=== PATIENT | male | born 1940 | race American Indian/Alaskan Native ===

== ENCOUNTER 2017-07-30 11:32 | Emergency (ER) | payer BC, OTHER ==
[2017-07-30 11:40] VITALS: BMI 21.6
--- NOTE | 2017-07-30 11:54 | PDOC ---
History of Present Illness - General Chief Complaint: Injury Stated Complaint: INJURY Time Seen by Provider: 07/30/17 11:46 History Source: Patient Exam Limitations: No Limitations - History of Present Illness Initial Comments: This is a 77 YOM with h/o NIDDM, HTN, and HLD who p/w nonhealing wound to his right diamond for the past 20 days after accidentally hitting this diamond with a metal bar. Over the past 2-3 days he has had worsening pain and surrounding redness to the wound, despite treatment with a course of amoxicillin which he has been taking adherently. He is being treated by Dr. Ledbetter for this. He denies any fever, chills, nausea, vomiting, diarrhea, constipation, streaking redness, swollen lymph nodes, or new numbness, tingling, weakness, or other symptoms. He has never had a skin infection or MRSA before per his own report. He notes well-controlled CBG at home with adherent use of metformin and Januvia. Past History - Past Medical History Allergies/Adverse Reactions: Allergies Allergy/AdvReac Type Severity Reaction Status Date / Time No Known Drug Allergies Allergy Verified 07/30/17 11:40 Home Medications: Ambulatory Orders Aspirin [ASA -] 81 mg PO DAILY 06/11/14 Fenofibrate [Fenofibrate -] 134 mg PO DAILY 06/11/14 Glyburide/Metformin HCl [Glyburide-Metformin 5-500 mg] 1 each PO BID 06/11/14 Losartan Potassium 25 mg PO DAILY 06/11/14 Rosuvastatin Calcium [Crestor] 10 mg PO DAILY 06/11/14 Bimatoprost [Lumigan] 1 drop OU DAILY 08/07/14 Brimonidine Tartrate/Timolol [Combigan 0.2%-0.5% Eye Drops] 5 ml OS BID Cholecalciferol (Vitamin D3) [Vitamin D3] 1,000 unit PO DAILY 08/07/14 Multivitamins [Multivit (RH Formulary)] 1 tab PO DAILY 08/07/14 Vitamin E 400 unit PO DAILY 08/07/14 Cephalexin [Keflex] 500 mg PO QID #40 capsule 07/30/17 Sulfamethoxazole/Trimethoprim [Bactrim Ds Tablet] 2 each PO BID #40 tablet 07/30 Anemia: No Asthma: No Cancer: No Cardiac Disorders: No CVA: No COPD: No CHF: No Dementia: No Diabetes: Yes GI Disorders: No Disorders: No HTN: Yes Hypercholesterolemia: Yes Liver Disease: No Seizures: No Thyroid Disease: No - Surgical History Appendectomy: Yes (40 YRS AGO) - Suicide/Smoking/Psychosocial Hx Smoking History: Former smoker Have you smoked in the past 12 months: No Number of Cigarettes Smoked Daily: 5 If you are a former smoker, when did you quit?: 2017 Information on smoking cessation initiated: No 'Breaking Loose' booklet given: 06/11/14 Hx Alcohol Use: No Drug/Substance Use Hx: No Substance Use Type: None Hx Substance Use Treatment: No Review of Systems - Review of Systems Able to Perform ROS?: Yes Constitutional: No: Chills, Fever, Unexplained wgt Loss HEENTM: No: Nose Congestion, Throat Pain Respiratory: No: Cough, Shortness of Breath Cardiac (ROS): No: Chest Pain, Palpitations ABD/GI: No: Constipated, Diarrhea, Nausea, Vomiting : No: Burning, Dysuria Musculoskeletal: No: Back Pain, Neck Pain Integumentary: Yes: Erythema, Lesions. No: Bruising Neurological: No: Headache, Numbness, Tingling, Weakness, Dizziness Endocrine: No: Unexplained Weight Gain, Unexplained Weight Loss *Physical Exam - Vital Signs Last Vital Signs Temp Pulse Resp BP Pulse Ox 98 F 93 H 18 152/64 99 07/30/17 11:36 07/30/17 11:36 07/30/17 11:36 07/30/17 11:36 07/30/17 11:36 - Physical Exam General Appearance: Yes: Nourished, Appropriately Dressed, Thin, Other (well appearing adult male who is comfortable appearing, answers questions appropriately). No: Apparent Distress HEENT: positive: EOMI, ANGELO, Normal Voice, Hearing Grossly Normal. negative: Scleral Icterus (R), Scleral Icterus (L), Nasal Congestion Neck: positive: Trachea midline, Supple. negative: Tender, Rigid Respiratory/Chest: positive: Lungs Clear, Normal Breath Sounds. negative: Respiratory Distress, Crackles, Rhonchi, Stridor, Wheezing Cardiovascular: positive: Regular Rhythm, Regular Rate. negative: Murmur Gastrointestinal/Abdominal: positive: Normal Bowel Sounds, Soft. negative: Tender, Organomegaly, Pulsatile Mass, Guarding Musculoskeletal: positive: Normal Inspection. negative: Decreased Range of Motion, Vertebral Tenderness Extremity: positive: Normal Capillary Refill, Normal Inspection, Normal Range of Motion. negative: Tender, Cyanosis Integumentary: positive: Normal Color, Dry, Warm, Other (with central 1.5x1.5cm ulceration with granulation tissue and surrounding erythema and mild ttp, no purulent discharge or other fluid drainage). 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 Initial Vital Signs Temp Pulse Resp BP Pulse Ox 98 F 93 H 18 152/64 99 07/30/17 11:36 07/30/17 11:36 07/30/17 11:36 07/30/17 11:36 07/30/17 11:36 Exam: with central 1.5x1.5cm ulceration with granulation tissue and surrounding erythema and mild ttp, no purulent discharge or other fluid drainage DDX IBNLT: cellulitis, osteomyelitis, necrotizing soft tissue infection, sepsis , DVT, superficial venous thrombosis, CHF exacerbation, PVD, pulmonary HTN, etc W/U ordered: CBCD CMP EKG X-ray leg to r/o gas. TX ordered: IVF EKG: Leg XR: NADP Laboratory Tests 07/30/17 07/30/17 12:24 12:24 WBC 5.0 RBC 4.08 Hgb 13.4 Hct 38.7 MCV 94.7 MCH 32.9 MCHC 34.7 RDW 14.4 Plt Count 284 MPV 7.7 Absolute Neuts (auto) 2.4 Neutrophils % 47.6 D Lymphocytes % 37.5 Monocytes % 11.5 H Eosinophils % 2.6 Basophils % 0.8 Nucleated RBC % 0 Sodium 136 Potassium 4.5 Chloride 106 Carbon Dioxide 24 Anion Gap 6 L BUN 18 D Creatinine 1.3 Creat Clearance w eGFR 53.67 Random Glucose 140 H Calcium 9.7 Total Bilirubin 0.3 D AST 32 D ALT 56 D Alkaline Phosphatase 41 L Total Protein 8.3 H Albumin 4.3 Reassesement: exam unchanged, patient wants to go home. Vital Signs Temperature 97.9 F 07/30/17 14:36 Pulse Rate 81 07/30/17 14:36 Respiratory Rate 18 07/30/17 14:36 Blood Pressure 141/70 07/30/17 14:36 O2 Sat by Pulse Oximetry (%) 99 07/30/17 11:36 The Pt has gotten significant relief of symptoms with ED medications. Workup is not concerning for emergency-level pathology at this time. The Pt is appropriate for discharge with close outpatient follow up. E-Rx sent to patient's pharmacy for Bactrim and Keflex. Patient is advised to stop amoxicillin. They are comfortable with this plan and will follow up with their PCP in 1-3 days. Specific return precautions are discussed and they will come back to the ER if necessary. *DC/Admit/Observation/Transfer Diagnosis at time of Disposition: Cellulitis Qualifiers: Site of cellulitis: extremity Site of cellulitis of extremity: lower extremity Laterality: right Qualified Code(s): L03.115 - Cellulitis of right lower limb Skin ulcer Qualifiers: Non-pressure ulcer stage: limited to breakdown of skin Qualified Code(s): L98.491 - Non-pressure chronic ulcer of skin of other sites limited to breakdown of skin - Discharge Dispostion Disposition: HOME Condition at time of disposition: Stable Decision to Admit order: No - Prescriptions Prescriptions: Cephalexin [Keflex] 500 mg PO QID #40 capsule Sulfamethoxazole/Trimethoprim [Bactrim Ds Tablet] 2 each PO BID #40 tablet - Referrals - Patient Instructions Printed Discharge Instructions: DI for Cellulitis -- Adult Additional Instructions: You were seen in the ER for a leg infection. We did lab work and an x-ray, and we did not find any evidence of a life-threatening infection but you do need to switch antibiotics. After our assessment, we do not believe you are having a medical emergency at this time, and we believe you are safe to go home. We are sending electronic prescriptions for your new antibiotics to your pharmacy. Please pick them up and take the entire course. The dosing is a bit complicated , so do this: a) Bactrim DS take 2 pills at a time, twice a day. b) Keflex take one pill at a time, four times a day. Please STOP taking the amoxicillin. Please follow up with your regular PCP doctor in 1-3 days. Call their clinic as soon as possible, tell them you were seen in the ER, and tell them you need an appointment. If you have any new or worsening symptoms, please come back to the ER at any time (24 hours a day). If you are having severe or life threatening symptoms (especially fever, chills, worsening redness or streaking redness or pus drainage from the wound), or symptoms that make it unsafe to drive or have someone drive you, please call 911. - Post Discharge Activity
--- NOTE | 2017-07-30 12:03 | PDOC ---
Attending Attestation - HPI HPI: Patient is a 77 M, with PMHx of NIDDM (well-controlled), HTN, HLD, who presents with 20 days of left diamond ulceration. Patient states that about 3 weeks ago, he ran his diamond into a pipe and it became infected. He saw his PCP and was given amoxicillin. He has been taken the amoxicillin as prescribed but has not seen any improvement. He reports worsening pain and redness to the area. He states that his tetanus is up-to-date. He denies fever, chills, or any additional symptoms PCP: Anatoly Luke Hx: former smoker ( quit in 2017) 07/30/17 12:53 - Physicial Exam PE: Constitutional: Awake, alert, oriented. No acute distress. Head: Normocephalic. Atraumatic Eyes: PERRL. EOMI. Conjunctivae are not pale. ENT: Mucous membranes are moist and intact. Posterior pharynx without exudates or erythema. Uvula midline. Neck: Supple. Full ROM. No lymphadenopathy. Cardiovascular: Regular rate. Regular rhythm. S1, S2 regular. Distal pulses are 2+ and symmetric. Pulmonary/Chest: No evidence of respiratory distress. Clear to auscultation bilaterally No wheezing, rales or rhonchi. Abdominal: Soft and non-distended. There is no tenderness. No rebound, guarding or rigidity. No organomegaly. No palpable masses. Good bowel sounds. Back: No CVA tenderness. Musculoskeletal: No edema. No cyanosis. No clubbing. Full range of motion in all extremities. Nocalf tenderness. Radial/pedal pulses are intact and 2+ bilaterally Skin: 1x1 right diamond ulceration. 2.5 x 2.5 circular area of erythema with some warmth. No active drainage. No petechiae. No purpura. Neurological: Alert and oriented to person, place, and time. Cranial nerves II -XII are grossly intact. Normal speech. Strength is grossly symmetric. No sensory deficits. Psychiatric: Good eye contact. Normal interaction, affect and behavior. <Tamiko Duran - Last Filed: 07/30/17 12:53> - Resident Resident Name: Amanda Saldaña - ED Attending Attestation I have performed the following: I have examined & evaluated the patient, The case was reviewed & discussed with the resident, I agree w/resident's findings & plan, Exceptions are as noted - Medical Decision Making 07/30/17 12:03 I, Dr. Selina Hancock, DO, attest that this document has been prepared under my direction and personally reviewed by me in its entirety. I further attest, that it accurately reflects all work, treatment, procedures and medical decision -making performed by me. 07/30/17 14:11 a/p: 77yo male with injury to tib/fib -small ulceration -mild surrounding erythema -no systemic symptoms -will check labs, xray will monitor and reassess will most likely need to change augemtin to keflex/bactrim most likely d/c to home 07/30/17 14:14 xray without acute findings labs reviewed and stable will send out with new abx stable for d/c to home <Selina Hancock - Last Filed: 07/30/17 14:14>
[2017-07-30 12:45] LABS: BASO % 0.8 % (0-2.0); EOS % 2.6 % (0-4.5); HEMATOCRIT 38.7 % (35.4-49); HEMOGLOBIN 13.4 GM/dL (11.7-16.9); LYMPH % 37.5 % (8-40); MCH 32.9 pg (25.7-33.7); MCHC 34.7 g/dl (32.0-35.9); MEAN CELL VOLUME 94.7 fl (80-96); MEAN PLT VOLUME 7.7 fl (7.5-11.1); MONO % 11.5 % (3.8-10.2); NEUT % 47.6 % (42.8-82.8); PLATELET COUNT 284 K/MM3 (134-434); RBC 4.08 M/mm3 (4.00-5.60); RDW 14.4 % (11.9-15.9)
[2017-07-30 13:08] LABS: ALBUMIN 4.3 g/dl (3.4-5.0); ANION GAP 6 (8-16); BLOOD UREA NITROGEN 18 mg/dL (7-18); CALCIUM 9.7 mg/dL (8.5-10.1); CHLORIDE 106 mmol/L (98-107); CO2 24 mmol/L (21-32); CREATININE 1.3 mg/dL (0.7-1.3); GLUCOSE,RANDOM 140 mg/dL (74-106); POTASSIUM 4.5 mmol/L (3.5-5.1); SGOT/AST 32 U/L (15-37); SGPT/ALT 56 U/L (12-78); SODIUM 136 mmol/L (136-145)
[2017-07-30 13:09] LABS: BILIRUBIN,TOTAL 0.3 mg/dL (0.2-1.0)
[2017-07-30 13:11] LABS: ALK PHOS 41 U/L (45-117); TOT PROT 8.3 g/dl (6.4-8.2)
[2017-07-30 14:37] VITALS: BP 141/70; PULSE 81; TEMP 97.9
== END 2017-07-30 14:48 | disposition home or self-care (01) ==
LOC: JER 11:32
DX: L03.115 Cellulitis of right lower limb (principal); L98.491 Non-pressure chronic ulcer of skin of other sites limited to breakdown of skin; I10 Essential (primary) hypertension; E78.5 Hyperlipidemia, unspecified; E11.9 Type 2 diabetes mellitus without complications; Z87.891 Personal history of nicotine dependence
CPT/HCPCS: 36415; 73590-TC-RT-FY; 80053; 85025; 99282-25

== ENCOUNTER 2019-04-09 21:38 | Observation (INO) | payer BC, OTHER ==
[2019-04-09 21:53] VITALS: BMI 25.8
--- NOTE | 2019-04-09 21:57 | PDOC ---
Rapid Medical Evaluation Chief Complaint: Lightheaded Time Seen by Provider: 04/09/19 21:54 Medical Evaluation: Allergies Allergy/AdvReac Type Severity Reaction Status Date / Time No Known Drug Allergies Allergy Verified 04/09/19 21:50 Vital Signs Temp Pulse Resp BP Pulse Ox 97.6 F 97 H 18 168/71 98 04/09/19 21:50 04/09/19 21:50 04/09/19 21:50 04/09/19 21:50 04/09/19 21:50 04/09/19 21:55 I performed a brief in-person evaluation of this patient. 78-year-old male history of NIDDM, HTN, HLD, prior episode of vertigo presenting with dizziness, weakness, perioral numbness today. Daughter reports BP 190s systolic, BS 300s today. Pertinent physical exam findingS: Alert, oriented. NIHSS=0. Dizzy when standing. I have ordered the following: EKG HCT CXR Cardiac labs Patient to proceed to ED for further evaluation. Discharge Disposition - Diagnosis Dizziness - Referrals - Patient Instructions - Post Discharge Activity
--- NOTE | 2019-04-09 22:48 | PDOC ---
Attending Attestation - Resident Resident Name: Bakari Stewart - ED Attending Attestation I have performed the following: I have examined & evaluated the patient, The case was reviewed & discussed with the resident, I agree w/resident's findings & plan - HPI HPI: 04/10/19 02:01 see resident hpi - Physicial Exam PE: 04/10/19 02:01 see resident exam - Medical Decision Making 04/10/19 02:01 78-year-old male with several episodes of room spinning dizziness Labs suggest dehydration and diabetic hyperglycemia without DKA CT scan of the brain showed no acute abnormality Patient had some persistent dizzy episodes despite receiving meclizine Though symptoms are somewhat reproducible due to patient's age and poorly controlled diabetes will admit for further evaluation
--- NOTE | 2019-04-09 22:58 | PDOC ---
History of Present Illness - General Chief Complaint: Lightheaded Stated Complaint: DIZZINESS Time Seen by Provider: 04/09/19 21:54 History Source: Patient Exam Limitations: No Limitations - History of Present Illness Initial Comments: 04/10/19 00:22 78 yo with a hx of HTN, HLD, NIDDM, and hx of vertigo with last episode 4 years ago presents with sudden onset of dizziness at approximately at 8:30 pm while at rest. Per the patient, the room was spinning to the left that lasted for approximately 20 minutes with self termination. The patient states he is currently asymptomatic. Denies the following: fevers, chills, SOB, chest pain, nausea, vomiting, abdominal pain, headache, FND, dysuria, hematuria, diarrhea, and leg pain/swelling. Endorses generalized weakness. Past History - Past Medical History Allergies/Adverse Reactions: Allergies Allergy/AdvReac Type Severity Reaction Status Date / Time No Known Drug Allergies Allergy Verified 04/09/19 21:50 Home Medications: Ambulatory Orders Aspirin 81 mg PO DAILY 04/10/19 Cholecalciferol (Vitamin D3) [Vitamin D3 -] 1,000 unit PO DAILY 04/10/19 Famotidine [Pepcid -] 40 mg PO HS 04/10/19 Fluticasone Propionate [Flovent Diskus] 2 spray DAILY 04/10/19 Glyburide/Metformin HCl [Glyburide-Metformin 5-500 mg] 1 tab PO BID 04/10/19 Losartan Potassium 50 mg PO DAILY 04/10/19 Meclizine HCl [Antivert -] 50 mg PO Q8H PRN #30 tablet 04/10/19 Multivitamin [Multiple Vitamins] 1 each PO DAILY 04/10/19 Rosuvastatin [Crestor -] 10 mg PO DAILY 04/10/19 Sitagliptin Phosphate [Januvia] 100 mg PO DAILY 04/10/19 Tamsulosin HCl [Flomax -] 0.4 mg PO DAILY 04/10/19 Anemia: No Asthma: No Cancer: No Cardiac Disorders: No CVA: No COPD: No CHF: No Dementia: No Diabetes: Yes GI Disorders: No Disorders: No HTN: Yes Hypercholesterolemia: Yes Liver Disease: No Seizures: No Thyroid Disease: No - Surgical History Appendectomy: Yes (40 YRS AGO) - Psycho Social/Smoking Cessation Hx Smoking History: Never smoked Have you smoked in the past 12 months: No Number of Cigarettes Smoked Daily: 5 If you are a former smoker, when did you quit?: 2017 'Breaking Loose' booklet given: 06/11/14 Hx Alcohol Use: No Drug/Substance Use Hx: No Substance Use Type: None Hx Substance Use Treatment: No Review of Systems - Review of Systems Able to Perform ROS?: Yes Is the patient limited Mozambican proficient: No Constitutional: No: Chills, Diaphoresis, Fever, Weakness HEENTM: No: Eye Pain, Blurred Vision, Double Vision, Ear Pain, Nose Pain, Throat Pain, Mouth Pain Respiratory: No: Cough, Shortness of Breath, Hemoptysis Cardiac (ROS): No: Chest Pain, Lightheadedness, Palpitations, Syncope, Chest Tightness ABD/GI: No: Constipated, Diarrhea, Nausea, Poor Appetite, Poor Fluid Intake, Rectal Bleeding, Vomiting, Indigestion, Abdominal cramping, Tarry Stools : No: Burning, Dysuria, Hematuria Musculoskeletal: No: Back Pain, Joint Pain, Neck Pain Integumentary: No: Bruising, Erythema, Rash Neurological: Yes: Dizziness. No: Headache, Numbness, Tingling, Tremors Psychiatric: No: Change in Appetite Endocrine: No: Unexplained Weight Loss Hematologic/Lymphatic: No: Anemia *Physical Exam - Vital Signs Last Vital Signs Temp Pulse Resp BP Pulse Ox 97.6 F 97 H 18 168/71 98 04/09/19 21:50 04/09/19 21:50 04/09/19 21:50 04/09/19 21:50 04/09/19 21:50 - Physical Exam General Appearance: Yes: Nourished, Appropriately Dressed. No: Apparent Distress, Intoxicated, Obese HEENT: positive: EOMI, ANGELO, Normal Voice, Symmetrical, Pharynx Normal, Hearing Grossly Normal, Other (serrous effusion on the left TM). negative: Pale Conjunctivae, Scleral Icterus (R), Scleral Icterus (L), Muffled/Hoarse voice, Pharyngeal Erythema, Tonsillar Exudate, Tonsillar Erythema, Nasal Congestion, Rhinorrhea, Excessive drooling Neck: positive: Trachea midline, Supple. negative: Tender, Lymphadenopathy (R) , Lymphadenopathy (L), Tender lateral, Tender midline Respiratory/Chest: positive: Lungs Clear, Normal Breath Sounds. negative: Chest Tender, Respiratory Distress, Accessory Muscle Use Cardiovascular: positive: Regular Rhythm, Regular Rate, S1, S2. negative: Systolic Murmur Gastrointestinal/Abdominal: positive: Normal Bowel Sounds, Flat, Soft. negative : Tender, Protuberent, Distended, Guarding, Rebound Lymphatic: negative: Adenopathy Musculoskeletal: positive: Normal Inspection, CVA Tenderness. negative: Vertebral Tenderness Extremity: positive: Normal Capillary Refill, Normal Inspection, Normal Range of Motion. 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 Initial vitals: Initial Vital Signs Temp Pulse Resp BP Pulse Ox 97.6 F 97 H 18 168/71 98 04/09/19 21:50 04/09/19 21:50 04/09/19 21:50 04/09/19 21:50 04/09/19 21:50 Work up: ddx: peripheral vs central vertigo. Patient likely has peripheral given sudden onset, reproducible symptoms, worsening with movement, and positive desmond hallpike examination. Laboratory Tests 04/09/19 04/09/19 04/09/19 22:37 22:40 22:46 WBC RBC Hgb Hct MCV MCH MCHC RDW Plt Count MPV Absolute Neuts (auto) Neutrophils % Lymphocytes % Monocytes % Eosinophils % Basophils % Nucleated RBC % PT with INR INR VBG pH 7.36 POC VBG pCO2 41.1 POC VBG pO2 < 49 H VBG HCO3 22.8 L VBG O2 Sat (Lauryn) 64.9 L VBG Base Excess -2.0 Sodium Potassium Chloride Carbon Dioxide Anion Gap BUN Creatinine Est GFR (CKD-EPI)AfAm Est GFR (CKD-EPI)NonAf POC Glucometer 279 Random Glucose Calcium Total Bilirubin AST ALT Alkaline Phosphatase Creatine Kinase 186 Creatine Kinase Index 1.6 CK-MB (CK-2) 3.1 Troponin I < 0.02 Total Protein Albumin Beta-Hydroxybutyrate 04/09/19 04/09/19 04/09/19 22:46 22:46 22:46 WBC 5.4 RBC 3.96 L Hgb 12.8 Hct 36.9 MCV 93.3 MCH 32.3 MCHC 34.6 RDW 14.1 Plt Count 350 D MPV 8.2 Absolute Neuts (auto) 2.3 Neutrophils % 42.8 Lymphocytes % 35.7 Monocytes % 13.0 H Eosinophils % 7.7 H D Basophils % 0.8 Nucleated RBC % 0 PT with INR 12.00 INR 1.02 VBG pH POC VBG pCO2 POC VBG pO2 VBG HCO3 VBG O2 Sat (Lauryn) VBG Base Excess Sodium 134 L Potassium 4.6 Chloride 105 Carbon Dioxide 24 Anion Gap 5 L BUN 23.2 H Creatinine 1.4 H Est GFR (CKD-EPI)AfAm 55.77 Est GFR (CKD-EPI)NonAf 48.12 POC Glucometer Random Glucose 304 H Calcium 9.7 Total Bilirubin 0.3 AST 30 ALT 52 Alkaline Phosphatase 60 Creatine Kinase Creatine Kinase Index CK-MB (CK-2) Troponin I Total Protein 7.9 Albumin 4.1 Beta-Hydroxybutyrate 04/09/19 22:46 WBC RBC Hgb Hct MCV MCH MCHC RDW Plt Count MPV Absolute Neuts (auto) Neutrophils % Lymphocytes % Monocytes % Eosinophils % Basophils % Nucleated RBC % PT with INR INR VBG pH POC VBG pCO2 POC VBG pO2 VBG HCO3 VBG O2 Sat (Lauryn) VBG Base Excess Sodium Potassium Chloride Carbon Dioxide Anion Gap BUN Creatinine Est GFR (CKD-EPI)AfAm Est GFR (CKD-EPI)NonAf POC Glucometer Random Glucose Calcium Total Bilirubin AST ALT Alkaline Phosphatase Creatine Kinase Creatine Kinase Index CK-MB (CK-2) Troponin I Total Protein Albumin Beta-Hydroxybutyrate 1.6 Glucose elevated without elevated AG without acidosis. Denies alcoholic consumption. Slightly elevated creatinine that is up from baseline of 0.1. The patient had a pending head CT and was signed out to the night team. Discharge - Discharge Information Problems reviewed: Yes Clinical Impression/Diagnosis: Dizziness - Follow up/Referral - Patient Discharge Instructions - Post Discharge Activity
[2019-04-09 23:00] LABS: BASO % 0.8 % (0-2.0); EOS % 7.7 % (0-4.5); HEMATOCRIT 36.9 % (35.4-49); HEMOGLOBIN 12.8 GM/dL (11.7-16.9); LYMPH % 35.7 % (8-40); MCH 32.3 pg (25.7-33.7); MCHC 34.6 g/dl (32.0-35.9); MEAN CELL VOLUME 93.3 fl (80-96); MEAN PLT VOLUME 8.2 fl (7.5-11.1); NEUT % 42.8 % (42.8-82.8); PLATELET COUNT 350 K/MM3 (134-434); RBC 3.96 M/mm3 (4.00-5.60); RDW 14.1 % (11.9-15.9); WHITE BLOOD COUNT 5.4 K/mm3 (4.0-10.0)
[2019-04-09 23:01] LABS: VENOUS PC02 41.1 mmHg (38-52); VENOUS PH 7.36 (7.31-7.41)
[2019-04-09 23:05] LABS: VENOUS PO2 < 49 mmHg (28-48)
[2019-04-09 23:12] LABS: INR 1.02 (0.83-1.09)
[2019-04-09 23:24] LABS: ALBUMIN 4.1 g/dl (3.4-5.0); BILIRUBIN,TOTAL 0.3 mg/dL (0.2-1); BLOOD UREA NITROGEN 23.2 mg/dL (7-18); CALCIUM 9.7 mg/dL (8.5-10.1); CREATININE 1.4 mg/dL (0.55-1.3); POTASSIUM 4.6 mmol/L (3.5-5.1); TOT PROT 7.9 g/dl (6.4-8.2)
[2019-04-09] MEDS ORDERED: MECLIZINE HCL 25 MG TABLET (FP) PO ONE (23:31)
[2019-04-09] MEDS ORDERED: MECLIZINE HCL 25 MG TABLET (FP) ONE (23:37)
--- NOTE | 2019-04-10 00:11 | PDOC ---
*Physical Exam - Vital Signs Last Vital Signs Temp Pulse Resp BP Pulse Ox 97.6 F 97 H 18 168/71 98 04/09/19 21:50 04/09/19 21:50 04/09/19 21:50 04/09/19 21:50 04/09/19 21:50 ED Treatment Course - LABORATORY CBC & Chemistry Diagram: 04/10/19 08:25 04/10/19 08:25 - ADDITIONAL ORDERS Additional order review: Laboratory Results 04/09/19 04/09/19 04/09/19 22:46 22:46 22:46 PT with INR 12.00 INR 1.02 VBG pH POC VBG pCO2 POC VBG pO2 VBG HCO3 VBG O2 Sat (Lauryn) VBG Base Excess Sodium 134 L Potassium 4.6 Chloride 105 Carbon Dioxide 24 Anion Gap 5 L BUN 23.2 H Creatinine 1.4 H Est GFR (CKD-EPI)AfAm 55.77 Est GFR (CKD-EPI)NonAf 48.12 POC Glucometer Random Glucose 304 H Calcium 9.7 Total Bilirubin 0.3 AST 30 ALT 52 Alkaline Phosphatase 60 Creatine Kinase 186 Creatine Kinase Index 1.6 CK-MB (CK-2) 3.1 Troponin I < 0.02 Total Protein 7.9 Albumin 4.1 04/09/19 04/09/19 22:40 22:37 PT with INR INR VBG pH 7.36 POC VBG pCO2 41.1 POC VBG pO2 < 49 H VBG HCO3 22.8 L VBG O2 Sat (Lauryn) 64.9 L VBG Base Excess -2.0 Sodium Potassium Chloride Carbon Dioxide Anion Gap BUN Creatinine Est GFR (CKD-EPI)AfAm Est GFR (CKD-EPI)NonAf POC Glucometer 279 Random Glucose Calcium Total Bilirubin AST ALT Alkaline Phosphatase Creatine Kinase Creatine Kinase Index CK-MB (CK-2) Troponin I Total Protein Albumin 04/09/19 04/09/19 22:46 22:37 RBC 3.96 L MCV 93.3 MCHC 34.6 RDW 14.1 MPV 8.2 Neutrophils % 42.8 Lymphocytes % 35.7 Monocytes % 13.0 H Eosinophils % 7.7 H D Basophils % 0.8 POC Glucometer 279 - Medications Given in the ED: ED Medications Discontinued Medications Generic Name Dose Route Start Last Admin Trade Name Freq PRN Reason Stop Dose Admin Meclizine HCl 25 mg 04/09/19 23:31 04/09/19 23:40 Antivert - PO 04/09/19 23:32 25 mg ONCE ONE Administration Medical Decision Making - Medical Decision Making 04/10/19 00:[address] Stewart + desmond valles multiple CVA risk factors f/u CT head Admit stroke-obs 04/10/19 01:40 CT HEAD IOC: EXAM: CT HEAD WITHOUT CONTRAST No acute hemorrhage, mass or acute territorial infarct. Age-related involutional changes and chronic small vessel ischemic changes. Minimal mucoperiosteal thickening paranasal sinuses. Visualized mastoid air cells clear. Irma Salinas M.D. 04/10/19 02:02 endorsed admitted Discharge - Discharge Information Problems reviewed: Yes Clinical Impression/Diagnosis: Dizziness - Follow up/Referral - Patient Discharge Instructions - Post Discharge Activity
[2019-04-10] MEDS ORDERED: SODIUM CHLORIDE 0.9% 500 ML INFUS.BAG IV ONE (01:38)
--- NOTE | 2019-04-10 02:00 | PN ---
Teaching Attending Note Name of Resident: Coty Euceda ATTENDING PHYSICIAN STATEMENT I saw and evaluated the patient. I reviewed the resident's note and discussed the case with the resident. I agree with the resident's findings and plan as documented. SUBJECTIVE: 78 yo M W HTN, HLD, NIDDM, and hx of vertigo with last episode 4 years ago presents with sudden onset of vertigo at approximately at 8:30 pm while at rest. . Denies the following: fevers, chills, SOB, chest pain, nausea, vomiting, abdominal pain, headache, FND, dysuria, hematuria, diarrhea, and leg pain/ swelling. Endorses generalized weakness. OBJECTIVE: ASSESSMENT AND PLAN: 78 yo M W HTN, HLD, NIDDM, and hx of vertigo with last episode 4 years ago presents with sudden onset of vertigo at approximately at 8:30 pm while at rest. . Denies the following: fevers, chills, SOB, chest pain, nausea, vomiting, abdominal pain, headache, FND, dysuria, hematuria, diarrhea, and leg pain/ swelling. Endorses generalized weakness. vertigo: most likely BPPV as it is triggered with movement Will get MRI brain as well as vertebral artery doppler. Will ask for neuro evaluation Will ask for neuro eval Will C/CW asa, statins if central etiology of vertigo is R/O will send the patient for vestibular rehab. NIDDM: wiill C/W home medicatio, send Hg A1C and lipid panel HTN; will keep SBP around 180 till the MRI results result negative fro acute ischemia.
[2019-04-10] MEDS ORDERED: SODIUM CHLORIDE 1,000 ML IV SCH (03:45)
--- NOTE | 2019-04-10 03:53 | HP ---
CHIEF COMPLAINT: vertigo PCP: Marietta Hare HISTORY OF PRESENT ILLNESS: 78 y.o. M PMH HTN, HLD, vertigo, DM type 2 presenting for vertigo. The patient has hx of vertigo but has not had an episode in a few years. Today around 8pm he was standing up when he noticed he became very lightheaded and the room started spinning so he had to sit back down. Says he saw a neurologist for these symptoms in the past. He has had no recent changes in medications. He notes that he walked on the treadmill for about 30 minutes around 3pm. In ED noted to have + desmond hallpike. Minimal resolution of symptoms with meclazine. On my exam, vertigo is positional, none present at rest. C/o vertigo w/ change in position including rapid head turn, sitting up from supine, standing from sitting; episodes last ~10 seconds. ROS: + positional vertigo denies headache/ tinnitus/ SOB/ CP/ nausea/ vomiting/ abd pain/ urinary or bowel changes/ myalgias/ parasthesias/ weight changes ER course was notable for: (1) meclizine 25mg (2) 1 L normal saline (3) tachy to 104 Recent Travel: denies PAST MEDICAL HISTORY: as per hpi PAST SURGICAL HISTORY: appendectomy Social History: Smoking: denies Alcohol:denies Drugs: denies Allergies No Known Drug Allergies Allergy (Verified 04/09/19 21:50) HOME MEDICATIONS: Home Medications Medication Instructions Recorded Aspirin 81 mg PO DAILY 04/10/19 Cholecalciferol (Vitamin D3) 1,000 unit PO DAILY 04/10/19 [Vitamin D3 -] Famotidine [Pepcid -] 40 mg PO DAILY 04/10/19 Fluticasone Propionate [Flovent 2 spray DAILY 04/10/19 Diskus] Glyburide/Metformin HCl 1 tab PO BID 04/10/19 [Glyburide-Metformin 5-500 mg] Losartan Potassium 50 mg PO 04/10/19 Multivitamin [Multiple Vitamins] 1 each PO 04/10/19 Rosuvastatin [Crestor -] 10 mg PO DAILY 04/10/19 Sitagliptin Phosphate [Januvia] 100 mg PO 04/10/19 Tamsulosin HCl [Flomax] 0.4 mg PO DAILY 04/10/19 PHYSICAL EXAMINATION Vital Signs - 24 hr 04/09/19 04/10/19 04/10/19 21:50 01:21 03:36 Temperature 97.6 F Pulse Rate 97 H Pulse Rate [ 82 70 Right] Respiratory 18 20 20 Rate Blood Pressure 168/71 Blood Pressure 150/64 133/71 [Left] O2 Sat by Pulse 98 96 97 Oximetry (%) GENERAL: Awake, alert, and fully oriented, in no acute distress. Negative orthostatics. HEAD: Normal with no signs of trauma. EYES: PERRLA. Dificulty with L lateral gaze. Sclera anicteric, conjunctiva clear. ENT: Oropharynx clear without exudates. Moist mucous membranes. NECK: Normal range of motion. No JVD. LUNGS: Breath sounds equal, clear to auscultation bilaterally. No wheezes, and no crackles. No accessory muscle use. HEART: RRR, normal S1 and S2 without murmur, rub or gallop. ABDOMEN: Soft, nontender, not distended, normoactive bowel sounds EXTREMITIES: 2+ pulses, warm, well-perfused. No peripheral edema. NEUROLOGICAL: Difficulty w/ left lateral gaze, mild nystagmus. + nystagmus w/ turning of head b/l. Motor 5/5, sensory intact throughout. + Romberg testing L> R. PSYCHIATRIC: Appropriate mood and affect. SKIN: no rashes or lesions noted Laboratory Results - last 24 hr Laboratory Last Values WBC 5.4 K/mm3 (4.0-10.0) 04/09/19 22:46 RBC 3.96 M/mm3 (4.00-5.60) L 04/09/19 22:46 Hgb 12.8 GM/dL (11.7-16.9) 04/09/19 22:46 Hct 36.9 % (35.4-49) 04/09/19 22:46 MCV 93.3 fl (80-96) 04/09/19 22:46 MCH 32.3 pg (25.7-33.7) 04/09/19 22:46 MCHC 34.6 g/dl (32.0-35.9) 04/09/19 22:46 RDW 14.1 % (11.9-15.9) 04/09/19 22:46 Plt Count 350 K/MM3 (134-434) D 04/09/19 22:46 MPV 8.2 fl (7.5-11.1) 04/09/19 22:46 Absolute Neuts (auto) 2.3 K/mm3 (1.5-8.0) 04/09/19 22:46 Neutrophils % 42.8 % (42.8-82.8) 04/09/19 22:46 Lymphocytes % 35.7 % (8-40) 04/09/19 22:46 Monocytes % 13.0 % (3.8-10.2) H 04/09/19 22:46 Eosinophils % 7.7 % (0-4.5) H D 04/09/19 22:46 Basophils % 0.8 % (0-2.0) 04/09/19 22:46 Nucleated RBC % 0 % (0-0) 04/09/19 22:46 PT with INR 12.00 SEC (9.7-13.0) 04/09/19 22:46 INR 1.02 (0.83-1.09) 04/09/19 22:46 VBG pH 7.36 (7.31-7.41) 04/09/19 22:40 POC VBG pCO2 41.1 mmHg (38-52) 04/09/19 22:40 POC VBG pO2 < 49 mmHg (28-48) H 04/09/19 22:40 VBG HCO3 22.8 mmol/L (23-29) L 04/09/19 22:40 VBG O2 Sat (Lauryn) 64.9 % (70-80) L 04/09/19 22:40 VBG Base Excess -2.0 meq/l (-2-2) 04/09/19 22:40 Sodium 134 mmol/L (136-145) L 04/09/19 22:46 Potassium 4.6 mmol/L (3.5-5.1) 04/09/19 22:46 Chloride 105 mmol/L (98-107) 04/09/19 22:46 Carbon Dioxide 24 mmol/L (21-32) 04/09/19 22:46 Anion Gap 5 MMOL/L (8-16) L 04/09/19 22:46 BUN 23.2 mg/dL (7-18) H 04/09/19 22:46 Creatinine 1.4 mg/dL (0.55-1.3) H 04/09/19 22:46 Est GFR (CKD-EPI)AfAm 55.77 04/09/19 22:46 Est GFR (CKD-EPI)NonAf 48.12 04/09/19 22:46 POC Glucometer 279 UNITS (80-120) 04/09/19 22:37 Random Glucose 304 mg/dL (74-106) H 04/09/19 22:46 Calcium 9.7 mg/dL (8.5-10.1) 04/09/19 22:46 Total Bilirubin 0.3 mg/dL (0.2-1) 04/09/19 22:46 AST 30 U/L (15-37) 04/09/19 22:46 ALT 52 U/L (13-61) 04/09/19 22:46 Alkaline Phosphatase 60 U/L (45-117) 04/09/19 22:46 Creatine Kinase 186 U/L (26-308) 04/09/19 22:46 Creatine Kinase Index 1.6 % (0.0-5.0) 04/09/19 22:46 CK-MB (CK-2) 3.1 ng/mL (0.5-3.6) 04/09/19 22:46 Troponin I < 0.02 ng/ml (0.00-0.05) 04/09/19 22:46 Total Protein 7.9 g/dl (6.4-8.2) 04/09/19 22:46 Albumin 4.1 g/dl (3.4-5.0) 04/09/19 22:46 Beta-Hydroxybutyrate 1.6 mg/dL (0.2-2.8) 04/09/19 22:46 ASSESSMENT/PLAN: 78 y.o. M PMH HTN, HLD, vertigo, DM type 2 admitted for vertigo. #Benign paroxysmal positional vertigo -CT head shows no acute pathology; chronic small vessel changes, mild thickening of paranasal sinuses -orthostatics negative on my exam -f/u brain MRI, carotid U/S, echo-- r/o CVA -may benefit from allan or other particle repositioning maneuvers, outpatient vestibular rehab -Neurology consulted -- Dr. Velazquez -physical therapy requested #XENA -baseline Cr ~1.2, now 1.4 -IV fluids, s/p 1L NS in ED, continuing @75cc/hr -monitor renal labs #HTN -allowing permissive htn until brain MRI results r/o cva -can resume once appropriate -monitor vitals -tachycardia resolved #HLD -resume statin -f/u lipid panel -continue to monitor #Diabetes mellitus type 2 -holding home oral agents -BGMs ACHS -ISS -f/u A1c #FEN -NS @75cc/hr -trend lytes replete prn -sodium controlled diabetic diet #PPX -heparin SQ -pepcid 40mg po daily #Dispo med surg Visit type - Emergency Visit Emergency Visit: Yes Care time: The patient presented to the Emergency Department on the above date and was hospitalized for further evaluation of their emergent condition. - New Patient This patient is new to me today: Yes Date on this admission: 04/10/19 - Critical Care Critical Care patient: No ATTENDING PHYSICIAN STATEMENT I saw and evaluated the patient. I reviewed the resident's note and discussed the case with the resident. I agree with the resident's findings and plan as documented. SUBJECTIVE: OBJECTIVE: ASSESSMENT AND PLAN:
[2019-04-10] MEDS: HEPARIN NA (PORCINE) 5,000 UNITS/ML 1ML VIAL SQ SCH ×2 (07:00→14:45)
[2019-04-10] MEDS: INSULIN SLIDING SCALE (NOVOLOG) 1 VIAL SQ SCH ×2 (08:30→12:20)
[2019-04-10] MEDS ORDERED: TAMSULOSIN HCL 0.4 MG CAP PO SCH (08:30)
[2019-04-10 08:36] LABS: EOS % 8.4 % (0-4.5); HEMATOCRIT 33.5 % (35.4-49); HEMOGLOBIN 11.6 GM/dL (11.7-16.9); LYMPH % 38.7 % (8-40); MCHC 34.5 g/dl (32.0-35.9); MEAN CELL VOLUME 92.7 fl (80-96); MEAN PLT VOLUME 7.6 fl (7.5-11.1); MONO % 13.3 % (3.8-10.2); NEUT % 38.6 % (42.8-82.8); PLATELET COUNT 311 K/MM3 (134-434); RBC 3.62 M/mm3 (4.00-5.60); WHITE BLOOD COUNT 4.7 K/mm3 (4.0-10.0)
[2019-04-10 09:04] LABS: ALBUMIN 3.4 g/dl (3.4-5.0); BILIRUBIN,TOTAL 0.3 mg/dL (0.2-1); BLOOD UREA NITROGEN 17.2 mg/dL (7-18); CALCIUM 8.6 mg/dL (8.5-10.1); CREATININE 1.2 mg/dL (0.55-1.3); TOT PROT 6.6 g/dl (6.4-8.2)
--- NOTE | 2019-04-10 09:17 | EKG ---
Test Reason : Blood Pressure : / mmHG Vent. Rate : 090 BPM Atrial Rate : 090 BPM P-R Int : 162 ms QRS Dur : 084 ms QT Int : 380 ms P-R-T Axes : 054 063 075 degrees QTc Int : 464 ms NORMAL SINUS RHYTHM POSSIBLE LEFT ATRIAL ENLARGEMENT BORDERLINE ECG WHEN COMPARED WITH ECG OF 07-AUG-2014 07:24, NONSPECIFIC T WAVE ABNORMALITY NOW EVIDENT IN LATERAL LEADS Confirmed by Gautam Marrero MD ([id number]) on 04/10/2019 9:17:09 AM Referred By: Confirmed By:Gautam Marrero MD
[2019-04-10] MEDS ORDERED: ASPIRIN 81 MG CHEWABLE TABLETS PO SCH (10:00)
[2019-04-10] MEDS ORDERED: LOSARTAN POTASSIUM 50 MG TABLET (FP) PO SCH (10:00)
[2019-04-10] MEDS ORDERED: MULTIVITAMINS (DAILY MVI) TABLET (FP) PO SCH (10:00)
[2019-04-10] MEDS ORDERED: FAMOTIDINE 20 MG TABLET PO SCH (10:00)
[2019-04-10] MEDS ORDERED: CHOLECALCIFEROL (VIT D3) 1,000 UNIT (25 MCG) TABLET PO SCH (10:00)
--- NOTE | 2019-04-10 11:20 | ECHO ---
Name: DEREJE RAMAN Exam:Adult Echocardiogram Study Date: 04/10/2019 10:32 AM Age: 78 yrs Reason For Study: Cardiac Fxn Height: 66 in Weight: 160 lb BSA: 1.8 m2 MMode/2D Measurements & Calculations IVSd: 1.2 cm Ao root diam: 3.0 cm LVIDd: 3.9 cm LA dimension: 3.7 cm LVIDs: 2.7 cm ACS: 1.2 cm LVPWd: 1.1 cm EDV(Teich): 66.1 ml LVOT diam: 1.6 cm ESV(Teich): 26.8 ml RV S Timothy: 13.7 cm/sec Doppler Measurements & Calculations MV E max timothy: 106.0 cm/sec MVA(VTI): 1.6 cm2 MV A max timothy: 121.7 cm/sec MV V2 max: 122.7 cm/sec MV E/A: 0.87 MV max P.0 mmHg MV V2 mean: 68.8 cm/sec MV mean P.3 mmHg MV V2 VTI: 32.0 cm Ao V2 max: 200.9 cm/sec MV dec slope: 365.1 cm/sec2 Ao max P.1 mmHg Ao V2 mean: 140.0 cm/sec Ao mean P.8 mmHg Ao V2 VTI: 47.8 cm PIETRO(I,D): 1.1 cm2 PIETRO(V,D): 1.0 cm2 LV V1 max P.4 mmHg MR max timothy: 417.2 cm/sec LV V1 mean P.5 mmHg MR max P.1 mmHg LV V1 max: 104.8 cm/sec LV V1 mean: 75.0 cm/sec LV V1 VTI: 26.9 cm SV(LVOT): 52.6 ml TR max timothy: 184.5 cm/sec TR max P.9 mmHg PA V2 max: 70.3 cm/sec PI end-d timothy: 99.1 cm/sec PA max P.0 mmHg Med Peak E' Timothy: 5.8 cm/sec Med E/e': 18.4 Lat Peak E' Timothy: 5.8 cm/sec Lat E/e': 18.4 Procedure A complete two-dimensional transthoracic echocardiogram was performed (2D, M-mode, Doppler and color flow Doppler). Left Ventricle The left ventricular size, thickness and function are normal. Ejection Fraction = 55%. The left ventr icular ejection fraction is normal. E/A reversal consistent with but not diagnostic of poor LV compliance. T he left ventricular wall motion is normal. Right Ventricle The right ventricle is normal in size and function. Atria Normal left and right atrial size and function. Mitral Valve There is mild mitral valve thickening. There is mild mitral annular calcification. There is no mitral regurgitation noted. Tricuspid Valve The tricuspid valve is normal in structure and function. There is trace tricuspid regurgitation. Righ t ventricular systolic pressure is 19 mmhg. Aortic Valve There is moderate aortic valve thickening. Mild valvular aortic stenosis. Trace to mild aortic regurg itation. Pulmonic Valve The pulmonic valve is normal in structure and function. Trace pulmonic valvular regurgitation. Great Vessels The aortic root is normal size. Pericardium/Pleura There is no pericardial effusion. There is no pleural effusion. Interpretation Summary The left ventricular size, thickness and function are normal There is mild mitral valve thickening. There is mild mitral annular calcification. There is trace tricuspid regurgitation. There is moderate aortic valve thickening. Mild valvular aortic stenosis. Trace to mild aortic regurgitation. Trace pulmonic valvular regurgitation. MD Gautam Marrero 04/10/2019 11:20 AM
[2019-04-10] MEDS ORDERED: MECLIZINE HCL 25 MG TABLET (FP) PO PRN ×2 (11:39→14:27)
--- NOTE | 2019-04-10 13:08 | CONSULT ---
Admitting History and Physical - Primary Care Physician PCP: Bakari Castro - Admission History of Present Illness: 78 yo M W HTN, HLD, NIDDM, and hx of vertigo with last episode 4 years ago presents with sudden onset of vertigo ct head (-) Selected Entries 04/10/19 07:45 Temperature 97.7 F Laboratory Tests 04/10/19 08:25 WBC 4.7 History Source: Patient, Family Member Limitations to Obtaining History: No Limitations - Smoking History Smoking history: Never smoked Have you smoked in the past 12 months: No Aproximately how many cigarettes per day: 5 If you are a former smoker, when did you quit?: 2017 - Alcohol/Substance Use Hx Alcohol Use: No History - Admission Reason For Visit: DIZZINESS - Diagnostics X-ray: Report Reviewed CT Scan: Report Reviewed MRI: Pending - General Mental Status: Alert and Oriented, Awake and Alert, Able to Follow Commands Attention: Intact Ability to Follow Directions: Excellent Head/Neck Control: WFL - Hearing Hearing: Normal Speech Evaluation - Communication Primary Language: URUGUAYAN Communication: Yes: Within Normal Limits Oral Expression Ability: Yes: No Impairment - Speech Production Able to Make Needs Known: Yes: WNL Intelligibility: Yes: WNL - Speech Characteristics Voice Loudness: Normal Voice Pitch: Yes: Normal Voice Phonatory-based Quality: Yes: Normal Speech Pattern: Normal Speech Clarity: < 100% Nasal Resonance: Normal Articulation: Yes: Precise Rate of Speech: Intact - Language/Auditory Comprehension Follows: Yes: 2 Stage Simple Commands Observation: Able to respond to yes/no queries: Yes, Comprehends Conversational Speech: Yes - Language/Verbal Expression Able to Respond to Simple Queries: Yes: WNL Able to Communicate Wants and Needs: Yes: WNL Functional Communication Status: Yes: WNL Attention: Yes: Intact - Memory/Perception manager long term care Memory: Yes: WNL Short Term Memory: Yes: WNL - Swallow Evaluation/Bedside Assessment Current Nutritional Intake: Regular, Thin Liquids Oral Secretions: Yes: WFL Dentition: Yes: Adequate Facial Symmetry at Rest: Symmetrical Facial Symmetry on Retraction: Symmetrical Facial Movement: Controlled Sensation: Normal Against Resistance Opening: Normal Against Resistance Closing: Normal Pucker Lips: Normal Smile: Normal Lingual Movement: Normal, Symmetric Lingual Speed of Movement: Normal Lingual Movement Strgth Against Opposition: Normal Lingual Movement Characteristics: Normal Velopharyngeal Movement: Normal Laryngeal Elevation: WFL Laryngeal Movement: Able to Palpate Rate of Intake: WFL Bolus Size: WFL Labial Seal: WFL Chewing: WFL Oral Prep Time: WFL A-P Transit: WFL Timing of Swallow: WFL Coughing/Throat Clear: No (3 oz water (-)) Change in Voice: No Recommendations - Speech Evaluation, Impression/Plan Impression: Speech, swallow, cognition, language intact - Dysphagia Impressions/Plan Swallowing Skills: WFL Dysphagia Impressions: No Impairment *Silent aspiration: cannot be R/O at bedside - Recommendations Diet Consistency: Regular Medication Administration: Whole with water Liquids: Thin Liquids
--- NOTE | 2019-04-10 14:38 | PN ---
Teaching Attending Note Name of Resident: Eric Maradiaga ATTENDING PHYSICIAN STATEMENT I saw and evaluated the patient. I reviewed the resident's note and discussed the case with the resident. I agree with the resident's findings and plan as documented. Seen and examined; please see resident note for further historical information. I personally verified all murcia historical information and exam findings. Personally interpreted all imaging and diagnostics and reviewed appropriate consults. I reviewed all labs and vital signs as per resident note and EMR as documented. I agree with the above assessment and plan unless supplemented by myself in the following. Discussed case with neurology, the patient is known to have vertigo and follows with Dr. Nguyen's partner. They had negative orthostatic vital signs, resolution of her symptoms with meclizine, and a positive Chelsea-Hallpike maneuver. They do not have any persisting rotational movement or focal neurologic disturbances or recent infections that would give a suspicion of vestibular neuritis or cerebellar CVA, etc. etc. They are started on 50 mg every 8 hour as needed of meclizine and the case was discussed with neurology. They will be able to be followed up as an outpatient within 1 to 2 weeks and were counseled on when to return back to the emergency room. They were able to ambulate without any issues. They should follow-up with ENT. 10 item review of systems completed and is negative aside from as discussed in the subjective data in my own/the resident documentation. VS, labs, imaging reviewed NAD, AAO, resting comfortably in bed. RRR s1/2 no mgr Normal muscle tone, moves all 5 extremities with normal apparent strength Neck is supple, trachea midline, no renetta LN Lungs CTAB with sym expansion NT ND +BS no renetta organomegaly CN2-12 wnl; no FND NC AT EOMI PERRLA Normal mood, appropriate behavior, euthymic affect No skin breakdown or rashes noted Echo, Doppler, EKG, CT head noted Assessment and plan: As stated, the patient has known diagnosis of BPPV and this is can with the exacerbation of it. They ran out of medications at home and experienced resolution with the standard of care treatment. They will be discharged home with follow-up with their outpatient neurologist, ENT, primary care. Furthermore they will be given 50 mg meclizine as needed further ongoing symptoms. They have chronic eosinophilia dating back to 2014 with no outpatient work-up. They are 6.1% and 8.4% now, they can follow-up with outpatient strongyloidiasis, ova and parasites, etc. etc. Furthermore, I will comment that they had negative CT head here and that there echocardiogram was performed and is within normal limits. They have no issues swallowing, swallow evaluation was somehow ordered but this will be discharged continued. Furthermore carotid Doppler was ordered for an unclear reason as well. There was no hemodynamically significant stenosis evident on the study.
[2019-04-10] MEDS ORDERED: HEPARIN NA (PORCINE) 5,000 UNITS/ML 1ML VIAL ONE (14:40)
--- NOTE | 2019-04-10 14:53 | DS ---
Physical Exam: SUBJECTIVE: Patient seen and examined at bedside. No complaints at this time. Discussed entire dc plan with patient and daughter in law at bedside. OBJECTIVE: Vital Signs Period Temp Pulse Resp BP Sys/Goode Pulse Ox Last 24 Hr 97.6 F-97.7 F 70-97 14-20 128-168/62-71 96-99 PHYSICAL EXAM GENERAL: The patient is awake, alert, and fully oriented, in no acute distress. EYES: PERRL, extraocular movements intact, sclera anicteric, conjunctiva clear. ENT: Ears Nonerythematous inner ear, 5oclock shadow present, no ttp of pinna or auricle, nares patent, oropharynx clear without exudates, moist mucous membranes. LUNGS: Breath sounds equal, clear to auscultation bilaterally, no wheezes, no crackles, no accessory muscle use. HEART: Regular rate and rhythm, S1, S2 without murmur, rub or gallop. ABDOMEN: Soft, nontender, nondistended, normoactive bowel sounds. EXTREMITIES: 2+ pulses, warm, well-perfused, no edema. NEUROLOGICAL: Cranial nerves II through XII grossly intact. Normal speech, gait not observed. LABS Laboratory Results - last 24 hr 04/09/19 04/09/19 04/09/19 22:37 22:40 22:46 WBC RBC Hgb Hct MCV MCH MCHC RDW Plt Count MPV Absolute Neuts (auto) Neutrophils % Lymphocytes % Monocytes % Eosinophils % Basophils % Nucleated RBC % PT with INR INR VBG pH 7.36 POC VBG pCO2 41.1 POC VBG pO2 < 49 H VBG HCO3 22.8 L VBG O2 Sat (Lauryn) 64.9 L VBG Base Excess -2.0 Sodium Potassium Chloride Carbon Dioxide Anion Gap BUN Creatinine Est GFR (CKD-EPI)AfAm Est GFR (CKD-EPI)NonAf POC Glucometer 279 Random Glucose Hemoglobin A1c % Calcium Total Bilirubin AST ALT Alkaline Phosphatase Creatine Kinase 186 Creatine Kinase Index 1.6 CK-MB (CK-2) 3.1 Troponin I < 0.02 Total Protein Albumin Triglycerides Cholesterol Total LDL Cholesterol HDL Cholesterol Beta-Hydroxybutyrate 04/09/19 04/09/19 04/09/19 22:46 22:46 22:46 WBC 5.4 RBC 3.96 L Hgb 12.8 Hct 36.9 MCV 93.3 MCH 32.3 MCHC 34.6 RDW 14.1 Plt Count 350 D MPV 8.2 Absolute Neuts (auto) 2.3 Neutrophils % 42.8 Lymphocytes % 35.7 Monocytes % 13.0 H Eosinophils % 7.7 H D Basophils % 0.8 Nucleated RBC % 0 PT with INR 12.00 INR 1.02 VBG pH POC VBG pCO2 POC VBG pO2 VBG HCO3 VBG O2 Sat (Lauryn) VBG Base Excess Sodium 134 L Potassium 4.6 Chloride 105 Carbon Dioxide 24 Anion Gap 5 L BUN 23.2 H Creatinine 1.4 H Est GFR (CKD-EPI)AfAm 55.77 Est GFR (CKD-EPI)NonAf 48.12 POC Glucometer Random Glucose 304 H Hemoglobin A1c % Calcium 9.7 Total Bilirubin 0.3 AST 30 ALT 52 Alkaline Phosphatase 60 Creatine Kinase Creatine Kinase Index CK-MB (CK-2) Troponin I Total Protein 7.9 Albumin 4.1 Triglycerides Cholesterol Total LDL Cholesterol HDL Cholesterol Beta-Hydroxybutyrate 04/09/19 04/10/19 04/10/19 22:46 07:52 08:25 WBC 4.7 RBC 3.62 L Hgb 11.6 L Hct 33.5 L MCV 92.7 MCH 32.0 MCHC 34.5 RDW 14.0 Plt Count 311 MPV 7.6 Absolute Neuts (auto) 1.8 Neutrophils % 38.6 L Lymphocytes % 38.7 Monocytes % 13.3 H Eosinophils % 8.4 H Basophils % 1.0 Nucleated RBC % 0 PT with INR INR VBG pH POC VBG pCO2 POC VBG pO2 VBG HCO3 VBG O2 Sat (Lauryn) VBG Base Excess Sodium Potassium Chloride Carbon Dioxide Anion Gap BUN Creatinine Est GFR (CKD-EPI)AfAm Est GFR (CKD-EPI)NonAf POC Glucometer 170 Random Glucose Hemoglobin A1c % Calcium Total Bilirubin AST ALT Alkaline Phosphatase Creatine Kinase Creatine Kinase Index CK-MB (CK-2) Troponin I Total Protein Albumin Triglycerides Cholesterol Total LDL Cholesterol HDL Cholesterol Beta-Hydroxybutyrate 1.6 04/10/19 04/10/19 04/10/19 08:25 08:25 12:26 WBC RBC Hgb Hct MCV MCH MCHC RDW Plt Count MPV Absolute Neuts (auto) Neutrophils % Lymphocytes % Monocytes % Eosinophils % Basophils % Nucleated RBC % PT with INR INR VBG pH POC VBG pCO2 POC VBG pO2 VBG HCO3 VBG O2 Sat (Lauryn) VBG Base Excess Sodium 138 Potassium 4.0 Chloride 109 H Carbon Dioxide 23 Anion Gap 6 L BUN 17.2 Creatinine 1.2 Est GFR (CKD-EPI)AfAm 67.20 Est GFR (CKD-EPI)NonAf 57.98 POC Glucometer 224 Random Glucose 178 H Hemoglobin A1c % 8.2 H Calcium 8.6 Total Bilirubin 0.3 AST 25 ALT 41 Alkaline Phosphatase 49 Creatine Kinase Creatine Kinase Index CK-MB (CK-2) Troponin I Total Protein 6.6 Albumin 3.4 Triglycerides 153 H Cholesterol 94 Total LDL Cholesterol 47 HDL Cholesterol 28 L Beta-Hydroxybutyrate HOSPITAL COURSE: Date of Admission:04/10/19 The patient has known diagnosis of BPPV and pt was admitted overnight for likely exacerbation of it. They ran out of medications at home and experienced resolution with the standard of care treatment. They will be discharged home with follow-up with their outpatient neurologist, ENT, primary care. Furthermore they will be given 50 mg meclizine as needed further ongoing symptoms. They have chronic eosinophilia dating back to 2014 with no outpatient work-up. Eosinophil count 6.1% previously and 8.4% now, they can follow-up with outpatient strongyloidiasis, ova and parasites, etc. Furthermore, I will comment that they had negative CT head here and that there echocardiogram was performed and is within normal limits. They have no issues swallowing. Furthermore, carotid Doppler was ordered for an unclear reason as well. There was no hemodynamically significant stenosis evident on the study. Date of Discharge: 04/10/19 Minutes to complete discharge: 35 Discharge Summary Problems reviewed: Yes Reason For Visit: DIZZINESS Condition: Improved - Instructions Diet, Activity, Other Instructions: You were admitted for dizziness. We evaluated you with several imaging studies which did not show any new abnormalities. Your blood sugar test (A1C) was found to be 8.2 which is high. You should follow up with your primary care doctor in 1 week after being discharged, where they will optimize your diabetes management. You had elevated cholesterol as well (triglycerides) so please have this evaluated when you leave here with your primary care doctor. You should follow up with your neurologist for your dizziness after you are discharged. If you do not have one, we can provide one for you (Dr. Velazquez). You should follow up with your ENT specialist (Dr Sanchez) for your dizziness after you are discharged. Medication to start after you leave here: Meclizine 50 mg by mouth every 8 hours daily for dizziness (may dose 3 pills/day ). You should continue your home medications as prescribed. You should return to the emergency department if you have any worsening of your current symptoms or: chest pain, shortness of breath, bowel/bladder complaints, abdominal pain etc. Referrals: Cate Hare MD [Primary Care Provider] - 1 Week Nhan Velazquez MD [Staff Physician] - 1 Week Virgil Sanchez MD [Staff Physician] - 1 Week Disposition: HOME - Home Medications Comprehensive Discharge Medication List: Ambulatory Orders Aspirin 81 mg PO DAILY 04/10/19 Cholecalciferol (Vitamin D3) [Vitamin D3 -] 1,000 unit PO DAILY 04/10/19 Famotidine [Pepcid -] 40 mg PO HS 04/10/19 Fluticasone Propionate [Flovent Diskus] 2 spray DAILY 04/10/19 Glyburide/Metformin HCl [Glyburide-Metformin 5-500 mg] 1 tab PO BID 04/10/19 Losartan Potassium 50 mg PO DAILY 04/10/19 Meclizine HCl [Antivert -] 50 mg PO Q8H PRN #30 tablet 04/10/19 Multivitamin [Multiple Vitamins] 1 each PO DAILY 04/10/19 Rosuvastatin [Crestor -] 10 mg PO DAILY 04/10/19 Sitagliptin Phosphate [Januvia] 100 mg PO DAILY 04/10/19 Tamsulosin HCl [Flomax -] 0.4 mg PO DAILY 04/10/19 This patient is new to me today: Yes Date on this admission: 04/10/19 Emergency Visit: Yes ED Registration Date: 04/10/19 Care time: The patient presented to the Emergency Department on the above date and was hospitalized for further evaluation of their emergent condition. Critical Care patient: No - Discharge Referral Referred to [facility] Med [facility].C.: No ATTENDING PHYSICIAN STATEMENT I saw and evaluated the patient. I reviewed the resident's note and discussed the case with the resident. I agree with the resident's findings and plan as documented. SUBJECTIVE: OBJECTIVE: ASSESSMENT AND PLAN:
[2019-04-10 17:07] VITALS: BP 127/60; PULSE 98; TEMP 98
[2019-04-10] MEDS ORDERED: ROSUVASTATIN CA 10 MG TABLET (FP) PO SCH (22:00)
== END 2019-04-10 17:00 | disposition home or self-care (01) ==
LOC: JER 21:38 → JERBED 04-10 01:51
PROVIDERS: ADMIT Internal Medicine; ATTEND Internal Medicine
PROC: 3E0337Z Introduction of Electrolytic and Water Balance Substance into Peripheral Vein, Percutaneous Approach (ICD-10-PCS; principal; 2019-04-10)
PROC: 3E013VG Introduction of Insulin into Subcutaneous Tissue, Percutaneous Approach (ICD-10-PCS; 2019-04-10)
PROC: 3E013GC Introduction of Other Therapeutic Substance into Subcutaneous Tissue, Percutaneous Approach (ICD-10-PCS; 2019-04-10)
DX: H81.10 Benign paroxysmal vertigo, unspecified ear (principal); N17.9 Acute kidney failure, unspecified; I10 Essential (primary) hypertension; E78.5 Hyperlipidemia, unspecified; E11.9 Type 2 diabetes mellitus without complications; Z79.82 Long term (current) use of aspirin; Z79.84 Long term (current) use of oral hypoglycemic drugs
CPT/HCPCS: 36415; 70450-TC; 71045-TC-FY; 80053; 80061; 82010; 82550; 82553; 82803; 82962; 83036; 83721; 84484; 85025; 85610; 93005; 93010; 93306-TC; 93880-TC; 99285-25; G0378; J1644; J7030